=== PATIENT | male | born 1950 | race Caucasian/White ===

== ENCOUNTER 2016-11-15 10:21 | Emergency (ER) | payer MEDICARE, BC ==
[2016-11-15] MEDS ORDERED: DIPHENHYDRAMINE HCL IV 50 MG/ML VIAL IVP ONE (10:24)
[2016-11-15] MEDS ORDERED: 0.9 % SODIUM CHLORIDE 1,000 ML BAG IV ONE (10:24)
[2016-11-15] MEDS ORDERED: METHYLPREDNISOLONE PF 125MG/VIAL IVP ONE (10:24)
[2016-11-15] MEDS ORDERED: RANITIDINE HCL 50 MG in 0.9 % SODIUM CHLORIDE 100ML 100 ML IVPB ONE (10:25)
--- NOTE | 2016-11-15 10:31 | Emergency Department Record ---
History of Present Illness - General Chief complaint: Bite Insect/other Stated complaint: BEE STINGS Time Seen by Provider: 11/15/16 10:24 Source: Patient Mode of Arrival: Ambulatory Limitations: No limitations - History of Present Illness Initial comments: 66 yo male presents to the ED with multiple "yellow jacket" stings. He was mowing. He was stung on the right shoulder, right flank, multiple times on the left hand. He felt a little short of breath initially but that is improving now. No facial or throat swelling. No chest pain. No history of anaphylaxis. No nausea or vomiting. No hives on presentation. He is on Coumadin. PCP is Dr Keenan JEFFRIES complaint: Insect bite/sting -: Minutes(s) Location: Chest, Back, LUE, RUE Severity: Moderate Quality: Aching Consistency: Constant Improves with: None Worsens with: None Context: Other (multiple stings) Associated symptoms: Denies other symptoms Treatments Prior to Arrival: None - Related Data Home Medications Medication Instructions Recorded Confirmed Last Taken Allopurinol 100 mg PO DAILY 11/15/16 11/15/16 Unknown Cholecalciferol (Vitamin D3) 1,000 unit PO DAILY 11/15/16 11/15/16 Unknown [Vitamin D3] Allergies Allergy/AdvReac Type Severity Reaction Status Date / Time NO KNOWN DRUG ALLERGY Allergy Uncoded 06/29/13 10:16 Review of Systems Constitutional: Denies: Chills, Fever, Malaise, Weakness Eyes: Denies: Eye discharge, Eye pain, Photophobia ENT: Denies: Congestion, Throat pain Respiratory: Reports: Dyspnea. Denies: Cough, Hemoptysis, Stridor, Wheezes Cardiovascular: Denies: Chest pain, Palpitations, Syncope Endocrine: Denies: Fatigue, Polydipsia, Polyuria Gastrointestinal: Denies: Abdominal pain, Diarrhea, Nausea, Vomiting Genitourinary: Denies: Dysuria, Frequency, Hematuria, Urgency Musculoskeletal: Denies: Arthralgia, Back pain, Joint swelling, Myalgia, Neck pain Skin: Reports: Other (Bee stings). Denies: Bruising Neurological: Denies: Confusion, Headache, Numbness, Weakness Psychiatric: Denies: Anxiety Hematological/Lymphatic: Denies: Blood Clots, Easy bleeding, Easy bruising, Swollen glands Past Medical History - SOCIAL HISTORY Smoking Status: Never smoker - RESPIRATORY Hx Respiratory Disorders: No - CARDIOVASCULAR Hx Cardio Disorders: Yes Hx Deep Vein Thrombosis: Yes Hx Irregular Heartbeat: Yes Comment:: WPW syndrome - NEURO Hx Neuro Disorders: No - GI Hx GI Disorders: No - Hx Genitourinary Disorders: Yes Hx Kidney Stones: Yes - ENDOCRINE Hx Endocrine Disorders: No - MUSCULOSKELETAL Hx Musculoskeletal Disorders: Yes Hx Gout: Yes - PSYCH Hx Psych Problems: No - HEMATOLOGY/ONCOLOGY Hx Hematology/Oncology Disorders: No Family Medical History Hx Heart Disease: Father Hx Resp Disorders: Mother Physical Exam - General General Appearance: Alert, Oriented x3, Cooperative, No acute distress Limitations: No limitations - Head Head exam: Atraumatic, Normocephalic, Normal inspection - Eye Eye exam: Normal appearance, PERRL. negative: Conjunctival injection, Periorbital swelling, Scleral icterus - ENT ENT exam: Normal exam, Mucous membranes moist, Normal orophraynx. negative: Mucous membranes dry Ear exam: Normal external inspection Nasal Exam: Normal inspection. negative: Discharge Mouth exam: Normal external inspection, Tongue normal. negative: Drooling, Muffled voice, Tongue elevation, Trismus Teeth exam: Normal inspection Throat exam: Normal inspection. negative: Tonsillar erythema, Tonsillomegaly, Tonsillar exudate, R peritonsillar mass, L peritonsillar mass - Neck Neck exam: Normal inspection, Full ROM. negative: Lymphadenopathy, Tenderness - Respiratory Respiratory exam: Normal lung sounds bilaterally. negative: Respiratory distress, Rhonchi, Stridor, Wheezes - Cardiovascular Cardiovascular Exam: Regular rate, Normal rhythm, Normal heart sounds Peripheral Pulses: 2+: Radial (R), Radial (L) - GI/Abdominal GI/Abdominal exam: Soft. negative: Tenderness - Rectal Rectal exam: Deferred - exam: Deferred - Extremities Extremities exam: negative: Normal inspection (multiple sting sites) Image of Full Body: 1 - sting 2 - sting 3 - sting - Back Back exam: Reports: Full ROM. Denies: Normal inspection, Rash noted - Neurological Neurological exam: Alert, Normal gait, Oriented X3, Reflexes normal - Psychiatric Psychiatric exam: Normal affect, Normal mood - Skin Skin exam: Other (sting sites at noted) Course - Reevaluation(s) Reevaluation #1: 11/15/16 10:31 Vitals reviewed No hypxia or tachycardia His lungs are clear He is non labored No facial or oral swelling 11/15/16 11:35 Labs reviewed INR 1.9 No acute changes He is resting comfortably without symptoms No signs of anaphylaxis 11/15/16 11:43 the patient is asymptomatic at [place] Medical Decision Making - Lab Data Result diagrams: 11/15/16 10:25 11/15/16 10:25 Disposition Disposition: Discharge Clinical Impression: Bee sting reaction Qualifiers: Encounter type: initial encounter Injury intent: undetermined intent Qualified Code(s): T63.444A - Toxic effect of venom of bees, undetermined, initial encounter Disposition: Home, Self-Care Condition: (1) Good Instructions: Insect Bite or Sting (ED) Additional Instructions: Ice the sting areas to minimize swelling Take Benadryl every 4-6 hours if itching Take Prednisone twice daily for 5 days Return if you have swelling, short of breath, or any concerns about the bee stings Follow up with your doctor for a recheck and to review this ER visit Forms: Patient Portal Access Time of Disposition: 11:36 Quality - Quality Measures Quality Measures: N/A - Blood Pressure Screening Does Patient Have Any of the Following: No Blood Pressure Classification: Hypertensive Reading Systolic Measurement: 142 Diastolic Measurement: 90 Screening for High Blood Pressure: < Pre-Hypertensive BP, F/U Documented > [ [id number]] Pre-Hypertensive Follow-up Interventions: Referral to alternative/primary care provider.
[2016-11-15 10:41] LABS: BASO % 0.2 % (0-6); EOS % 0.6 % (0-6); GRAN % 53.2 % (47-80); HEMATOCRIT 47.4 % (42.0-52.0); HEMOGLOBIN 16.4 gm/dl (14.0-18.0); LYMPH % 39.8 % (16-45); MEAN CELL VOLUME 88.8 fl (81-97); MEAN CORPUSCULAR HEMOGLOBIN 30.7 pg (27-33); MEAN CORPUSCULAR HGB CONC 34.6 g/dl (32-36); MONO % 6.2 % (0-9); PLATELET COUNT 253 K/uL (130-400); RED BLOOD COUNT 5.34 M/uL (4.40-5.70); RED CELL DISTRIBUTION WIDTH 13.1 % (11.5-14.5); WHITE BLOOD COUNT W/O DIFF 8.3 K/uL (4.2-12.2)
[2016-11-15 10:53] LABS: INR 1.92; PROTHROMBIN TIME (PATIENT) 20.9 SECONDS (9.5-12.1)
[2016-11-15 10:55] LABS: BLOOD UREA NITROGEN 44.8 mg/dL (17.4-49.2); EST GLOMERULAR FILTRATION RATE > 60 mL/min; GLUCOSE,RANDOM 133 mg/dL (74-109)
== END 2016-11-15 11:54 | disposition home or self-care (01) ==
LOC: ER 10:21
DX: T63.444A Toxic effect of venom of bees, undetermined, initial encounter (principal); R42 Dizziness and giddiness; R06.02 Shortness of breath; R61 Generalized hyperhidrosis; Z79.01 Long term (current) use of anticoagulants
CPT/HCPCS: 80048; 85025; 85610; 96365; 96375; 99284; J1200; J2780; J2930; J7030

== ENCOUNTER 2019-01-18 07:34 | Emergency (ER) | payer MEDICARE, BC ==
--- NOTE | 2019-01-18 07:56 | Emergency Department Record ---
History of Present Illness - General Chief complaint: Extremity Problem Stated complaint: BLOOD CLOT Time Seen by Provider: 01/18/19 07:43 Source: Patient Mode of Arrival: Ambulatory Limitations: No limitations - History of Present Illness Initial comments: The patient has had L leg pain for 2 days. The patient has a long hx of DVT's and is on Coumadin. The patient did have his Coumadin dose lowered a couple of weeks ago due to a blood draw on 01/07 with a high INR. The patient does not know when his last leg Doppler was performed. He denies any CP, SOB, KERRIE, or fevers. MD Complaint: Extremity pain Onset/Timin -: Days(s) Location: Left, Lower Leg Severity scale (1-10): 2 Quality: Aching Consistency: Constant Improves with: Nothing Worsens with: Walking, Weight bearing Associated Symptoms: Denies other symptoms - Related Data Home Medications Medication Instructions Recorded Confirmed Last Taken Dronedarone HCl [Multaq] 400 mg PO BID 01/18/19 01/18/19 1 Day Ago ~01/17/19 Allergies Allergy/AdvReac Type Severity Reaction Status Date / Time NO KNOWN DRUG ALLERGY Allergy HYPERSENSIT Uncoded 01/18/19 07:43 IVITY Travel Screening - Travel/Exposure Within Last 30 Days Have you traveled within the last 30 days?: No - Travel/Exposure Within Last Year Have you traveled outside the [place] in the last year?: No - Additonal Travel Details Have you been exposed to anyone with a communicable illness?: No - Travel Symptoms Symptom Screening: None Review of Systems Constitutional: Denies: Chills, Fever Eyes: Denies: Eye discharge ENT: Denies: Congestion Respiratory: Denies: Cough, Dyspnea Past Medical History - SOCIAL HISTORY Smoking Status: Never smoker Alcohol Use: None Drug Use: None - RESPIRATORY Hx Respiratory Disorders: No - CARDIOVASCULAR Hx Cardio Disorders: Yes Hx Deep Vein Thrombosis: Yes Hx Irregular Heartbeat: Yes Comment:: WPW syndrome - NEURO Hx Neuro Disorders: No - GI Hx GI Disorders: No - Hx Genitourinary Disorders: Yes Hx Kidney Stones: Yes - ENDOCRINE Hx Endocrine Disorders: No - MUSCULOSKELETAL Hx Musculoskeletal Disorders: Yes Hx Gout: Yes - PSYCH Hx Psych Problems: No - HEMATOLOGY/ONCOLOGY Hx Hematology/Oncology Disorders: No Family Medical History Any Significant Family History?: Yes Hx Heart Disease: Father Hx Resp Disorders: Mother Physical Exam - General General Appearance: Alert, Oriented x3, Cooperative, No acute distress - Head Head exam: Atraumatic - Eye Eye exam: Normal appearance - Neck Neck exam: Normal inspection, Full ROM. negative: Tenderness - Respiratory Respiratory exam: Normal lung sounds bilaterally. negative: Respiratory distres s - Cardiovascular Cardiovascular Exam: Regular rate, Normal rhythm, Normal heart sounds - GI/Abdominal GI/Abdominal exam: Soft, Normal bowel sounds. negative: Tenderness - Extremities Extremities exam: Tenderness (There is mild tenderness to the L medial lower thigh and posterior knee. ), Other (Lower extremity pulses are normal.). negative: Normal inspection (The patient does have bilateral vercose veins.) - Back Back exam: Reports: Normal inspection. Denies: Vertebral tenderness - Neurological Neurological exam: Alert, Normal gait. negative: Abnormal gait, Motor sensory deficit - Psychiatric Psychiatric exam: negative: Anxious Course Vital Signs 01/18/19 07:37 Temperature 97.7 F Pulse Rate 82 Respiratory 20 Rate Blood Pressure 197/108 Pulse Ox 99 - Reevaluation(s) Reevaluation #1: The patient is doing very well at this time. His INR is stable and therapeutic at this time but due to the dose being lowered recently I am concerned it may be somewhat labile and could lead to having another DVT. With the patient's hx I do feel he needs a leg Doppler test and since we are unable to perform it here the patient would like to go to [facility] [place] test. I did discuss the case with Dr. Cardoso in the ER and she does accept the patient in an ER to ER transfer. 01/18/19 08:38 Medical Decision Making - Data Complexity MDM Data: Labs Ordered and/or Reviewed - Lab Data Result diagrams: 01/18/19 07:55 01/18/19 07:55 Disposition Disposition: Discharge Clinical Impression: Leg pain, left Disposition: Acute Care Hospital Transfer Transfer To: [facility] [place] Reason For Transfer: [place] Accepting Physician: Walker Time Discussed w/Accepting Physician: 08:41 Condition: (2) Stable Forms: Patient Portal Access Time of Disposition: 08:41 Quality - Quality Measures Quality Measures: N/A - Blood Pressure Screening View Details: Yes Does Patient Have Any of the Following: Active Dx of HTN Blood Pressure Classification: Hypertensive Reading Systolic Measurement: 197 Diastolic Measurement: 108 Screening for High Blood Pressure: Patient Exclusion, Hx of HTN [G9744]
[2019-01-18 08:08] LABS: BASO % 0.2 % (0-6); EOS % 0.9 % (0-6); GRAN % 75.4 % (47-80); HEMATOCRIT 53.3 % (42.0-52.0); HEMOGLOBIN 17.9 gm/dl (14.0-18.0); LYMPH % 16.7 % (16-45); MEAN CELL VOLUME 91.6 fl (81-97); MEAN CORPUSCULAR HGB CONC 33.6 g/dl (32-36); MEAN PLATELET VOLUME 9.5 fl (7.4-10.4); MONO % 6.8 % (0-9); PLATELET COUNT 265 K/uL (130-400); RED BLOOD COUNT 5.82 M/uL (4.40-5.70); RED CELL DISTRIBUTION WIDTH 13.2 % (11.5-14.5); WHITE BLOOD COUNT W/O DIFF 9.2 K/uL (4.2-12.2)
[2019-01-18 08:10] LABS: MEAN CORPUSCULAR HEMOGLOBIN 30.7 pg (27-33)
[2019-01-18 08:18] LABS: INR 2.3; PARTIAL THROMBOPLASTIN TIME 35.5 SECONDS (24.5-39.1); PROTHROMBIN TIME (PATIENT) 22.8 SECONDS (9.5-12.1)
[2019-01-18 08:20] LABS: BLOOD UREA NITROGEN 21 mg/dL (8-23); EST GLOMERULAR FILTRATION RATE > 60 mL/min
[2019-01-18 08:23] LABS: GLUCOSE,RANDOM 123 mg/dL (74-109)
== END 2019-01-18 08:51 | disposition short-term general hospital (02) ==
LOC: ER 07:34
DX: M79.662 Pain in left lower leg (principal); I10 Essential (primary) hypertension; Z86.718 Personal history of other venous thrombosis and embolism; Z79.01 Long term (current) use of anticoagulants
CPT/HCPCS: 80048; 85025; 85610; 85730; 99285